=== PATIENT | male | born 1985 | race Caucasian/White ===

== ENCOUNTER → 2019-06-04 16:13 | Outpatient (BNVA) | payer OTHER, SELFPAY | PROVIDERS: Visit Provider Nurse Practitioner | DX: S59.901A Unspecified injury of right elbow, initial encounter (principal); X58.XXXA Exposure to other specified factors, initial encounter | CPT/HCPCS: 73070 ==

== ENCOUNTER 2019-08-14 11:09 | Emergency (ER) | payer OTHER, SELFPAY ==
[2019-08-14] VITALS (9 sets, daily range): BP systolic 109–171; BP diastolic 71–80; PULSE 52–73; RESP 16–20; TEMP 36.7; O2SAT 92–97; BMI 27.3
--- NOTE | 2019-08-14 11:40 | W.ED.EXTPRO ---
Documented by User: CANELO Villalobos 08/14/19 17:07 HPI - Extremity Problem General: Chief complaint: Extremity Problem,Nontraumatic Stated complaint: L HIP PAIN Time Seen by Provider: 08/14/19 11:28 Source: patient Mode of arrival: wheelchair Limitations: no limitations History of Present Illness: HPI Narrative: Patient is a 33-year-old male who presents to ED today with a complaint of left hip pain over the past 1.5 weeks. Patient states he has not had any injury or trauma to the hip. He tells me he has not been able to ambulate or get out of bed over the past 8 days due to pain. He is already been seen at [facility] ED and had negative x-ray hip films obtained. Patient states pain seems to radiate down into his thigh and calf. He is not complaining of lower back pain but has been told previously he has degenerative disc disease and bulging disks. He does not describe any numbness/tingling/loss of sensation to the extremity. He is not having any saddle anesthesia or bowel or bladder dysfunction. He has not noticed any swelling, redness, warmth, pallor, or coolness to the extremity. Does not complain about the hip being warm or red. He denies body aches, fevers, chills. Denies drug use. MD Complaint: joint pain Onset (ago): day(s) Pain Consistency: constant Location: left Radiation: distal Relieving factors: immobilization Exacerbating factors: range of motion, weight bearing and walking Associated symptoms: Reports no associated symptoms; Deny chest pain, fever(s) or rash Review of Systems General: Reports: 10 or more systems reviewed and unremarkable except in HPI and below Const: Denies: fever(s), chills, body aches, change in appetite, change in weight, fatigue or malaise Eyes: Denies: change in vision, blurry vision, photophobia, floaters or seeing flashes Card: Denies: chest pain, palpitations, irregular heart rhythm, lightheadedness, syncope or dyspnea on exertion Resp: Denies: dyspnea, productive cough or pain on inspiration GI: Denies: abdominal pain, nausea, vomiting, heartburn or diarrhea : Denies: flank pain, difficulty urinating, dysuria, urinary frequency, urinary urgency or urinary hesitancy Musc: Reports: extremity pain (L LE) and joint pain (L hip); Denies: neck pain, back pain, extremity swelling or joint swelling Skin/Breast: Denies: rash Neuro: Reports: difficulty walking (secondary to pain); Denies: headache(s), numbness in extremities, weakness in extremities, sensory changes, lack of coordination, frequent falls, dizziness, vertigo, confusion, Slurred speech present or restless legs PFSH ED PFSH: Family History Grandfather Diabetes Father COPD (chronic obstructive pulmonary disease) Social History Smoking and tobacco status: never smoked Second hand smoke exposure: No Smoking risk assessment/counseling performed?: No Alcohol intake: never Desire information about alcohol rehabilitation?: No Counseling given: No Desire information about substance/drug rehabilitation?: No Counseling given: No Physical Exam Const: COMMON NORMALS: no acute distress, average body habitus, patient oriented x3, no limitations, healthy appearing, alert and well nourished ORIENTATION/CONSCIOUSNESS: Yes oriented to person, Yes oriented to place and Yes oriented to time Neck/C-Spine: COMMON NORMALS: full ROM, no lymphadenopathy and no meningeal signs Resp: COMMON NORMALS: normal respiratory effort and clear to auscultation bilaterally AUSCULTATION: clear to auscultation bilaterally Cardio: COMMON NORMALS: regular rate and regular rhythm RATE: regular rate RHYTHM: regular rhythm : COMMON NORMALS: Yes no CVA tenderness BLADDER/KIDNEY EXAM: Yes no CVA tenderness Back/Pelvis: COMMON NORMALS: no CVA tenderness, thoracic and lumbar spine normal to inspection, no thoracic nor lumbar tenderness and thoraco-lumbar ROM normal SACROILIAC JOINTS: Yes SI joints normal Extremity: OTHER: pt with pain to posterior/lateral L hip; no redness/warmth; pain is not out of proportion to exam; pain with flex/ext/external and internal rotation; he is able to flex and hold extremity off table for a short amount of time; no strength against resistence due to pain; DP/PT pulses and cap refill normal; no swelling, redness to extremity; equal color/temp bilaterally; sensory appears intact Neuro: SPIKE COMA SCALE: document GCS findings Spike coma scale eye opening: Spontaneous [place] coma scale verbal response: Orientated Spike coma scale motor response: Obey commands Spike coma scale total score: 15 COMMON NORMALS: patient oriented x3, moves all extremities, no focal motor deficits and no sensory deficits noted SENSORIUM/ORIENTATION: Yes alert, Yes oriented to person, Yes oriented to place and Yes oriented to time MENINGEAL SIGNS: Yes no meningeal signs GAIT: Yes Unable to assess gait Skin: COMMON NORMALS: no rashes or lesions noted GENERAL SKIN EXAM: no rashes or lesions noted Course Vital Signs: Vital signs: Vital Signs Temperature 98.0 F 08/14/19 11:23 Pulse Rate 55 L 08/14/19 18:34 Respiratory Rate 16 08/14/19 18:34 Blood Pressure 115/78 08/14/19 18:34 Pulse Oximetry 92 08/14/19 18:34 MDM - Extremity (Nontraumatic) MDM Narrative: Medical decision making narrative: Due to patient not being ambulatory for 8 days now and already having one emergency department evaluation I did go ahead and elect for lab work including inflammatory markers to evaluate for a possible septic joint although I think this is unlikely. His pain is not out of proportion to exam. Records from [facility] were obtained and hip XR was interpreted by the radiologist as normal. The lab work performed today is noncontributory. He has a normal ESR and CRP. His white count is normal. Drug screen is positive for marijuana. Obtaining lumbar CT scan to evaluate further. Refer to CT report-obtaining MRI w and w/o contrast Patient will be transferred to [facility] Matt at shift change pending results of the MRI-most like will require neurosurgery consultation Lab Data: Labs: Lab Results 08/14/19 08/14/19 08/14/19 Range/Units 11:58 11:58 11:58 WBC 9.1 (4.0-10.0) 10^3/ uL RBC 5.55 H (4.1-5.3) 10^6/u L Hgb 16.3 (11.7-16.6) g/dL Hct 47.5 (42.0-52.0) % MCV 85.6 (80-94) fL MCH 29.4 (28.0-34.0) pg MCHC 34.3 (30.0-36.0) g/dL RDW 11.9 L (12.1-15.1) % Plt Count 349 (130-400) 10^3/c mm MPV 9.8 (7.4-10.4) fL Neut % (Auto) 67.6 % Lymph % (Auto) 24.8 % Price % (Auto) 5.3 % Eos % (Auto) 1.1 % Baso % (Auto) 0.9 % Neut # (Auto) 6.2 (1.8-7.7) 10^3/u L Lymph # (Auto) 2.3 (0.8-4.8) 10^3/u L Price # (Auto) 0.5 (0.2-0.9) 10^3/u L Eos # (Auto) 0.1 (0.0-0.8) 10^3/u L Baso # (Auto) 0.1 (0.0-0.1) 10^3/u L Nucleated RBC % (a uto) 0 % Nucleated RBCs # 0.0 /100WBC ESR 3 (0-10) mm/hr Sodium 140 (136-145) mmol/L Potassium 3.8 (3.5-5.1) mmol/L Chloride 99 (98-107) mmol/L Carbon Dioxide 27 (22-29) mmol/L Anion Gap 17.8 (5-19) BUN 19 (6-20) mg/dL Creatinine 0.9 (0.7-1.2) mg/dL GFR Calculation 96.0 (90-130) mL/min Glucose 112 (65-115) mg/dL Calculated Osmolal ity 287 (285-295) mOsm/k g Calcium 9.2 (8.5-10.5) mg/dL Total Bilirubin 0.6 (0.15-1.2) mg/dL AST 16 (0-40) U/L ALT 22 (0-41) U/L Alkaline Phosphata se 70 (40-130) IU/L C-Reactive Protein 0.3 (0.0-4.9) mg/L Total Protein 7.1 (6.6-8.7) g/dL Albumin 5.0 (3.5-5.2) g/dL Globulin 2.1 (1.3-4.6) g/dL Urine Opiates Scre en (Negative) ng/mL Ur Barbiturates Sc reen (Negative) ng/mL Ur Phencyclidine S crn (Negative) ng/mL Ur Amphetamines Sc reen (Negative) ng/mL U Benzodiazepines Scrn (Negative) ng/mL Urine Cocaine Scre en (Negative) ng/mL U Marijuana (THC) Screen (Negative) ng/mL 08/14/19 Range/Units 13:30 WBC (4.0-10.0) 10^3/ uL RBC (4.1-5.3) 10^6/u L Hgb (11.7-16.6) g/dL Hct (42.0-52.0) % MCV (80-94) fL MCH (28.0-34.0) pg MCHC (30.0-36.0) g/dL RDW (12.1-15.1) % Plt Count (130-400) 10^3/c mm MPV (7.4-10.4) fL Neut % (Auto) % Lymph % (Auto) % Price % (Auto) % Eos % (Auto) % Baso % (Auto) % Neut # (Auto) (1.8-7.7) 10^3/u L Lymph # (Auto) (0.8-4.8) 10^3/u L Price # (Auto) (0.2-0.9) 10^3/u L Eos # (Auto) (0.0-0.8) 10^3/u L Baso # (Auto) (0.0-0.1) 10^3/u L Nucleated RBC % (a uto) % Nucleated RBCs # /100WBC ESR (0-10) mm/hr Sodium (136-145) mmol/L Potassium (3.5-5.1) mmol/L Chloride (98-107) mmol/L Carbon Dioxide (22-29) mmol/L Anion Gap (5-19) BUN (6-20) mg/dL Creatinine (0.7-1.2) mg/dL GFR Calculation (90-130) mL/min Glucose (65-115) mg/dL Calculated Osmolal ity (285-295) mOsm/k g Calcium (8.5-10.5) mg/dL Total Bilirubin (0.15-1.2) mg/dL AST (0-40) U/L ALT (0-41) U/L Alkaline Phosphata se (40-130) IU/L C-Reactive Protein (0.0-4.9) mg/L Total Protein (6.6-8.7) g/dL Albumin (3.5-5.2) g/dL Globulin (1.3-4.6) g/dL Urine Opiates Scre en Negative (Negative) ng/mL Ur Barbiturates Sc reen Negative (Negative) ng/mL Ur Phencyclidine S crn Negative (Negative) ng/mL Ur Amphetamines Sc reen Negative (Negative) ng/mL U Benzodiazepines Scrn Negative (Negative) ng/mL Urine Cocaine Scre en Negative (Negative) ng/mL U Marijuana (THC) Screen Positive H (Negative) ng/mL Imaging Data^: CT lumbar: Radiologist's impression: [address] [address] [address] Scan Report Signed Patient: Sabino Mcknight Unit #: [id number] : [id number] Age/Sex: 33 / M ADM Date: 08/14/19 Loc: ER Room/Bed: Attending Dr: Ordering Provider/Ordering MD: Gwendolyn Epstein Date of Service: 08/14/19 Procedure(s): CT lumbar spine wo con* [id number] Accession Number(s): [id number] Report Number: [id number] PROCEDURE INFORMATION: Exam: CT Lumbar Spine Without Contrast Exam date and time: 08/14/2019 3:31 PM Age: 33 years old Clinical indication: Low back pain; Patient HX: C/O chronic lbp now w lle pain x 8 days denies new injury; Additional info: L le pain/cannot ambulate TECHNIQUE: Imaging protocol: Computed tomography images of the lumbar spine without contrast. Radiation optimization: All CT scans at this facility use at least one of these dose optimization techniques: automated exposure control; mA and/or kV adjustment per patient size (includes targeted exams where dose is matched to clinical indication); or iterative reconstruction. COMPARISON: No relevant prior studies available. 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 No spondylolisthesis. No acute fracture. There are moderate to severe facet degenerative changes in the lower lumbar spine. No bony destructive lesion. The disc material is identified posterior to the L4 vertebral body. Discs/Spinal canal/Neural foramina: There is mild disc space narrowing at L4-L5. At L4-L5, there is a left paracentral disc protrusion/extrusion. When viewed on the sagittal images, the disc material appears to be migrating superiorly from the L4-L5 disc space series 601, image 29. The sagittal images demonstrate a very subtle fat plane between the superior aspect of the disc and the inferior aspect of the L3-L4 disc. Specifically this disc appears to be migrating superiorly from the L4-L5 level. This large disc is resulting in flattening of the anterior left aspect of the thecal sac and marked mass effect on the left L4 nerve root as it exits the thecal sac. There is also a broad-based disc bulge at this level which also results in moderate flattening of the thecal sac and additional foraminal narrowing especially the left foramina at L4-L5. At L5-S1, there is a left paracentral disc bulge with mild posterior displacement of the S1 nerve root. The lateral component the disc also appears to be slightly displacing the L5 nerve root series 3 image 71 through 73. There is no significant right foraminal narrowing. There is a very small disc bulge at L3-L4 with minimal narrowing of the central canal and foramina but no critical stenosis. Soft tissues: Unremarkable. CT/CT lumbar spine wo con* [id number] IMPRESSION: 1. Large left paracentral disc at L4-L5 with an extruded fragment that is migrated superiorly behind the L4 vertebral body. This is resulting in mass effect on the thecal sac and marked mass effect on the L4 nerve root. Additional disc protrusion at the level of the L4-L5 disc space results in further narrowing of the thecal sac and left foramina at L4-L5. 2. Significant although not as large disc protrusion at L5-S1 resulting in mass effect of the far lateral aspect of the L5 nerve root and mild posterior displacement of the left S1 nerve root as it leaves the thecal sac. 3. Spondylolysis of L5. No spondylolisthesis. No acute bony fracture. Radiation Dose CTDIVOL = (mGy): DLP = 1852.23 (mGy-cm) Dictated By: Megan Bray Signed By: Megan Bray Signed Date/Time: 08/14/191611 DD/ 10 Discharge Plan Discharge Patient Disposition: Home, Self-Care Clinical Impression: Acute lumbar radiculopathy Condition: Stable Prescriptions: New diclofenac sodium 75 mg tablet,delayed release (DR/EC) 75 mg PO BID Qty: 20 RF: 0 hydrocodone-acetaminophen 7.5-325 mg tablet 1 tab PO Q8H PRN (Reason: pain) Qty: 15 RF: 0 tizanidine 4 mg tablet 4 mg PO Q8H Qty: 30 RF: 0 gabapentin 600 mg tablet 300 mg PO BID Qty: 20 RF: 0 Discharge Orders: Discharge Order (Routine); Ordered 08/14/19 Ordered By: Doni Mora Discharge Diet: Usual diet Discharge Activity: Increase activity as tolerated Patient Instructions: Back Pain (ED) Activity Restrictions/Additional Instructions: Increase activity as tolerated. Gentle stretching and range of motion exercises. Use crutches or a walker for ambulation. Drink plenty of water with medications. Follow-up with primary care for further treatment until appointment with specialist. Return to the ER for worsening symptoms or new concerns. Coding Level of Care Code ED University Professor for Chg Fwd Exam Comprehensive Documented by User: TRENTON Monterroso 08/14/19 18:41 HPI - Extremity Problem General: Chief complaint: Extremity Problem,Nontraumatic Stated complaint: L HIP PAIN Time Seen by Provider: 08/14/19 11:28 PFSH ED PFSH: Family History Grandfather Diabetes Father COPD (chronic obstructive pulmonary disease) Social History Smoking and tobacco status: never smoked Second hand smoke exposure: No Smoking risk assessment/counseling performed?: No Alcohol intake: never Desire information about alcohol rehabilitation?: No Counseling given: No Desire information about substance/drug rehabilitation?: No Counseling given: No Course ED course: 1809, talk with Dr. Ambrose who stated that the MRI noted a bulging disc but no tumor or emergent abnormality. wjw 1829, talk to patient regarding abnormalities on the MRI with recommendations for treatment and follow-up with neurosurgery, Dr. Benavidez. Patient reports understanding of care plan and need for follow-up. Patient has been using crutches to get around at home. wjw Vital Signs: Vital signs: Vital Signs Temperature 98.0 F 08/14/19 11:23 Pulse Rate 55 L 08/14/19 18:34 Respiratory Rate 16 08/14/19 18:34 Blood Pressure 115/78 08/14/19 18:34 Pulse Oximetry 92 08/14/19 18:34 MDM - Extremity (Nontraumatic) MDM Narrative: Medical decision making narrative: Patient came in for complaints of persistent low back pain for the last 8 days. Patient reported some increase mobility today but continues to have significant pain in the low back. Patient reports pain is been chronic for the last 10 to 12 years but this is the worst episode he has had. Patient appears well. Exam noted a positive leg lift test at about 1 foot off the bed on the right side. Vital signs were normal. Differential diagnosis includes lumbar radiculopathy, intervertebral disc disease, facet arthropathy. CT scan showed an abnormality with possible mass-effect and CANELO Villalobos, discussed with Dr. Ambrose and it was recommended that an MRI be done. MRI did not note any sign of a tumor but confirmed disc bulge. Reviewed this with patient with recommendations for follow-up with neurosurgery for further treatment. Patient reported understanding and agreed with plan. Lab Data: Labs: Lab Results 08/14/19 08/14/19 08/14/19 Range/Units 11:58 11:58 11:58 WBC 9.1 (4.0-10.0) 10^3/ uL RBC 5.55 H (4.1-5.3) 10^6/u L Hgb 16.3 (11.7-16.6) g/dL Hct 47.5 (42.0-52.0) % MCV 85.6 (80-94) fL MCH 29.4 (28.0-34.0) pg MCHC 34.3 (30.0-36.0) g/dL RDW 11.9 L (12.1-15.1) % Plt Count 349 (130-400) 10^3/c mm MPV 9.8 (7.4-10.4) fL Neut % (Auto) 67.6 % Lymph % (Auto) 24.8 % Price % (Auto) 5.3 % Eos % (Auto) 1.1 % Baso % (Auto) 0.9 % Neut # (Auto) 6.2 (1.8-7.7) 10^3/u L Lymph # (Auto) 2.3 (0.8-4.8) 10^3/u L Price # (Auto) 0.5 (0.2-0.9) 10^3/u L Eos # (Auto) 0.1 (0.0-0.8) 10^3/u L Baso # (Auto) 0.1 (0.0-0.1) 10^3/u L Nucleated RBC % (a uto) 0 % Nucleated RBCs # 0.0 /100WBC ESR 3 (0-10) mm/hr Sodium 140 (136-145) mmol/L Potassium 3.8 (3.5-5.1) mmol/L Chloride 99 (98-107) mmol/L Carbon Dioxide 27 (22-29) mmol/L Anion Gap 17.8 (5-19) BUN 19 (6-20) mg/dL Creatinine 0.9 (0.7-1.2) mg/dL GFR Calculation 96.0 (90-130) mL/min Glucose 112 (65-115) mg/dL Calculated Osmolal ity 287 (285-295) mOsm/k g Calcium 9.2 (8.5-10.5) mg/dL Total Bilirubin 0.6 (0.15-1.2) mg/dL AST 16 (0-40) U/L ALT 22 (0-41) U/L Alkaline Phosphata se 70 (40-130) IU/L C-Reactive Protein 0.3 (0.0-4.9) mg/L Total Protein 7.1 (6.6-8.7) g/dL Albumin 5.0 (3.5-5.2) g/dL Globulin 2.1 (1.3-4.6) g/dL Urine Opiates Scre en (Negative) ng/mL Ur Barbiturates Sc reen (Negative) ng/mL Ur Phencyclidine S crn (Negative) ng/mL Ur Amphetamines Sc reen (Negative) ng/mL U Benzodiazepines Scrn (Negative) ng/mL Urine Cocaine Scre en (Negative) ng/mL U Marijuana (THC) Screen (Negative) ng/mL 08/14/19 Range/Units 13:30 WBC (4.0-10.0) 10^3/ uL RBC (4.1-5.3) 10^6/u L Hgb (11.7-16.6) g/dL Hct (42.0-52.0) % MCV (80-94) fL MCH (28.0-34.0) pg MCHC (30.0-36.0) g/dL RDW (12.1-15.1) % Plt Count (130-400) 10^3/c mm MPV (7.4-10.4) fL Neut % (Auto) % Lymph % (Auto) % Price % (Auto) % Eos % (Auto) % Baso % (Auto) % Neut # (Auto) (1.8-7.7) 10^3/u L Lymph # (Auto) (0.8-4.8) 10^3/u L Price # (Auto) (0.2-0.9) 10^3/u L Eos # (Auto) (0.0-0.8) 10^3/u L Baso # (Auto) (0.0-0.1) 10^3/u L Nucleated RBC % (a uto) % Nucleated RBCs # /100WBC ESR (0-10) mm/hr Sodium (136-145) mmol/L Potassium (3.5-5.1) mmol/L Chloride (98-107) mmol/L Carbon Dioxide (22-29) mmol/L Anion Gap (5-19) BUN (6-20) mg/dL Creatinine (0.7-1.2) mg/dL GFR Calculation (90-130) mL/min Glucose (65-115) mg/dL Calculated Osmolal ity (285-295) mOsm/k g Calcium (8.5-10.5) mg/dL Total Bilirubin (0.15-1.2) mg/dL AST (0-40) U/L ALT (0-41) U/L Alkaline Phosphata se (40-130) IU/L C-Reactive Protein (0.0-4.9) mg/L Total Protein (6.6-8.7) g/dL Albumin (3.5-5.2) g/dL Globulin (1.3-4.6) g/dL Urine Opiates Scre en Negative (Negative) ng/mL Ur Barbiturates Sc reen Negative (Negative) ng/mL Ur Phencyclidine S crn Negative (Negative) ng/mL Ur Amphetamines Sc reen Negative (Negative) ng/mL U Benzodiazepines Scrn Negative (Negative) ng/mL Urine Cocaine Scre en Negative (Negative) ng/mL U Marijuana (THC) Screen Positive H (Negative) ng/mL Discharge Plan Discharge Patient Disposition: Home, Self-Care Clinical Impression: Acute lumbar radiculopathy Condition: Stable Prescriptions: New diclofenac sodium 75 mg tablet,delayed release (DR/EC) 75 mg PO BID Qty: 20 RF: 0 hydrocodone-acetaminophen 7.5-325 mg tablet 1 tab PO Q8H PRN (Reason: pain) Qty: 15 RF: 0 tizanidine 4 mg tablet 4 mg PO Q8H Qty: 30 RF: 0 gabapentin 600 mg tablet 300 mg PO BID Qty: 20 RF: 0 Discharge Orders: Discharge Order (Routine); Ordered 08/14/19 Ordered By: Doni Mora Discharge Diet: Usual diet Discharge Activity: Increase activity as tolerated Patient Instructions: Back Pain (ED) Activity Restrictions/Additional Instructions: Increase activity as tolerated. Gentle stretching and range of motion exercises. Use crutches or a walker for ambulation. Drink plenty of water with medications. Follow-up with primary care for further treatment until appointment with specialist. Return to the ER for worsening symptoms or new concerns. Coding Level of Care Code ED University Professor for Dee Fwlissa Exam Comprehensive
[2019-08-14 12:04] LABS: Basophils # 0.1 10^3/uL (0.0-0.1); Basophils % 0.9 %; Eosinophils # 0.1 10^3/uL (0.0-0.8); Eosinophils % 1.1 %; Hematocrit 47.5 % (42.0-52.0); Hemoglobin 16.3 g/dL (11.7-16.6); Lymphocytes # 2.3 10^3/uL (0.8-4.8); Lymphocytes % 24.8 %; Mean Corpuscular HGB Conc 34.3 g/dL (30.0-36.0); Mean Corpuscular Hemoglobin 29.4 pg (28.0-34.0); Mean Corpuscular Volume 85.6 fL (80-94); Mean Platelet Volume 9.8 fL (7.4-10.4); Monocytes # 0.5 10^3/uL (0.2-0.9); Monocytes % 5.3 %; Neutrophils # 6.2 10^3/uL (1.8-7.7); Neutrophils % 67.6 %; Nucleated Red Blood Cells % 0 %; Platelet Count 349 10^3/cmm (130-400); Red Blood Count 5.55 10^6/uL (4.1-5.3); Red Cell Distribution Width 11.9 % (12.1-15.1); White Blood Count 9.1 10^3/uL (4.0-10.0)
[2019-08-14 12:19] LABS: Alanine Aminotransferase 22 U/L (0-41); Alkaline Phosphatase 70 IU/L (40-130); Anion Gap 17.8 (5-19); Aspartate Amino Transferase 16 U/L (0-40); Blood Urea Nitrogen 19 mg/dL (6-20); Calcium 9.2 mg/dL (8.5-10.5); Carbon Dioxide 27 mmol/L (22-29); Chloride 99 mmol/L (98-107); Globulin 2.1 g/dL (1.3-4.6); Glucose 112 mg/dL (65-115); Osmolality Calculated 287 mOsm/kg (285-295); Potassium 3.8 mmol/L (3.5-5.1); Sodium 140 mmol/L (136-145); Total Bilirubin 0.6 mg/dL (0.15-1.2); Total Protein 7.1 g/dL (6.6-8.7)
[2019-08-14 13:08] LABS: Erythrocyte Sedimentation Rate 3 mm/hr (0-10)
[2019-08-14 13:24] LABS: C Reactive Protein 0.3 mg/L (0.0-4.9)
--- NOTE | 2019-08-14 13:34 | CTR_ITS ---
PROCEDURE INFORMATION: Exam: CT Lumbar Spine Without Contrast Exam date and time: 08/14/2019 3:31 PM Age: 33 years old Clinical indication: Low back pain; Patient HX: C/O chronic lbp now w lle pain x 8 days denies new injury; Additional info: L le pain/cannot ambulate TECHNIQUE: Imaging protocol: Computed tomography images of the lumbar spine without contrast. Radiation optimization: All CT scans at this facility use at least one of these dose optimization techniques: automated exposure control; mA and/or kV adjustment per patient size (includes targeted exams where dose is matched to clinical indication); or iterative reconstruction. COMPARISON: No relevant prior studies available. 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 No spondylolisthesis. No acute fracture. There are moderate to severe facet degenerative changes in the lower lumbar spine. No bony destructive lesion. The disc material is identified posterior to the L4 vertebral body. Discs/Spinal canal/Neural foramina: There is mild disc space narrowing at L4-L5. At L4-L5, there is a left paracentral disc protrusion/extrusion. When viewed on the sagittal images, the disc material appears to be migrating superiorly from the L4-L5 disc space series 601, image 29. The sagittal images demonstrate a very subtle fat plane between the superior aspect of the disc and the inferior aspect of the L3-L4 disc. Specifically this disc appears to be migrating superiorly from the L4-L5 level. This large disc is resulting in flattening of the anterior left aspect of the thecal sac and marked mass effect on the left L4 nerve root as it exits the thecal sac. There is also a broad-based disc bulge at this level which also results in moderate flattening of the thecal sac and additional foraminal narrowing especially the left foramina at L4-L5. At L5-S1, there is a left paracentral disc bulge with mild posterior displacement of the S1 nerve root. The lateral component the disc also appears to be slightly displacing the L5 nerve root series 3 image 71 through 73. There is no significant right foraminal narrowing. There is a very small disc bulge at L3-L4 with minimal narrowing of the central canal and foramina but no critical stenosis. Soft tissues: Unremarkable. CT/CT lumbar spine wo con* [id number] IMPRESSION: 1. Large left paracentral disc at L4-L5 with an extruded fragment that is migrated superiorly behind the L4 vertebral body. This is resulting in mass effect on the thecal sac and marked mass effect on the L4 nerve root. Additional disc protrusion at the level of the L4-L5 disc space results in further narrowing of the thecal sac and left foramina at L4-L5. 2. Significant although not as large disc protrusion at L5-S1 resulting in mass effect of the far lateral aspect of the L5 nerve root and mild posterior displacement of the left S1 nerve root as it leaves the thecal sac. 3. Spondylolysis of L5. No spondylolisthesis. No acute bony fracture. Radiation Dose CTDIVOL = (mGy): DLP = 1852.23 (mGy-cm)
[2019-08-14] MEDS: orphenadrine 30 mg/mL Inj 2 mL 60 MG IM (13:53)
[2019-08-14] MEDS: dexamethasone 10 mg/mL INJ 8 MG IM (13:53)
[2019-08-14] MEDS: ketorolac 60 mg/2 mL INJ IM (13:53)
[2019-08-14 14:46] LABS: Amphetamines Screen Urine Negative (Negative); Barbiturates Screen Urine Negative (Negative); Benzodiazepines Screen Urine Negative (Negative); Cocaine Screen Urine Negative (Negative); Opiate Screen Urine Negative (Negative); PCP Screen Urine Negative (Negative); THC Screen Urine Positive (Negative)
[2019-08-14] MEDS: morphine 4 mg/mL SDV 1 mL IM (16:22)
--- NOTE | 2019-08-14 16:22 | MRR_ITS ---
PROCEDURE INFORMATION: Exam: MR Lumbar Spine Without and With Contrast. Exam date and time: 08/14/2019 5:12 PM Age: 33 years old Clinical indication: Low back pain; Patient HX: No known injury; Additional info: Spinal impingement; Cannot ambulate TECHNIQUE: Imaging protocol: Multiplanar magnetic resonance images of the lumbar spine without and with intravenous contrast. Contrast material: PROHANCE; Contrast volume: 17 ml; Contrast route: IV; COMPARISON: CT lumbar spine wo con* [id number] 08/14/2019 3:11 PM FINDINGS: Vertebrae: Mild endplate degenerative changes are noted at L4-L5. There is no acute fracture or subluxation. There is desiccation of the disc at L5-S1. Spinal cord: Normal signal. No cord compression. L1-L2: No significant disc disease. No significant spinal canal stenosis. No neural foraminal stenosis. L2-L3: No significant disc disease. No significant spinal canal stenosis. No neural foraminal stenosis. L3-L4: No significant disc disease. No significant spinal canal stenosis. No neural foraminal stenosis. L4-L5: There is a broad-based disc protrusion with extruded/free fragment that is migrated superiorly behind the L4 vertebral body. This large disc is resulting in flattening of the anterior left thecal sac posterior to the L4 vertebral body and posterior displacement of the adjacent nerve roots in the anterior left aspect of the thecal sac posterior to the L4 vertebral body. This is visualized on series 8, image 22. Protruding fragment at the level of the disc space itself results in mild narrowing of the entrance of the right foramina at L4-L5 and there is also a lateral component that appears to be slightly displacing the far lateral aspect of the L4 nerve root image 23. L5-S1: At L5-S1, there is a left paracentral disc bulge with small annular fissure. This disc is a far lateral component that is slightly displacing the L5 nerve root in the lateral recess and there is also a component that is posteriorly displacing the left S1 nerve root as it leaves the thecal sac. This is visualized on series 8, image 27 and 28. Soft tissues: Unremarkable. MR/MR lumbar spine wo/w con [id number] IMPRESSION: 1. Large disc protrusion and extrusion at L4-L5 . The large extruded fragment has migrated superiorly behind the L4 vertebral body and results in marked mass effect on the anterior left aspect of the thecal sac and the adjacent nerve roots. There is also a left paracentral/left lateral component of this disc protrusion at the level of the L4-L5 disc space is also resulting in mass effect on the L4 nerve root in the far lateral recess. 2. Small disc protrusion at L5-S1 with mild mass effect on the left S1 nerve root. This disc also results in mild mass effect on the far lateral aspect of left L5 nerve root.
[2019-08-14] MEDS: ondansetron 2 mg/ML SDV 2 mL 4 MG IVP (16:57)
[2019-08-14] MEDS: fentaNYL 50 mcg/mL INJ 2mL IVP (17:50)
--- NOTE | 2019-08-18 09:14 | DCPLANNER ---
Addendum entered by Shima Zelaya 09/17/19 13:50: manager material called the office of Dr. Benavidez to confirm that a follow up appointment had been scheduled for patient. manager material was told that Vitaliy called and left a voicemail for patient to call clinic to schedule a follow up appointment. Original Note: manager material had message to schedule a follow up appointment for patient with Dr. Benavidez. manager material called the office of Dr. Benavidez, spoke with Valerie, gave clinic patients information. manager material was told that patients information would be printed and given to Vitaliy for review. Clinic will call wrapper caser and patient with appointment information.
--- NOTE | 2019-08-18 11:45 | DCPLANNER ---
embedded software manager had message to speak with patient about getting established with a primary care physician. embedded software manager called [phone], unable to speak with patient at this time. embedded software manager left a voicemail for patient to return test case developer phone call.
== END 2019-08-14 19:07 | disposition home or self-care (01) ==
PROVIDERS: Physician Assistant; Emergency Provider Nurse Practitioner Family
DX: M54.16 Radiculopathy, lumbar region (principal)
CPT/HCPCS: 12345; 36415; 72131; 72158; 80053; 80306; 85025; 85651; 86140; 96372; 96374; 96375; 99283; A9579; J1100; J1885; J2270; J2360; J2405; J3010